=== PATIENT | male | born 1950 | race Caucasian/White ===

== ENCOUNTER 2021-01-20 13:39 | Inpatient (IN) | payer OTHER, MEDICARE ==
[2021-01-20] MEDS ORDERED: HEPARIN SODIUM 1,000 UN/ML (10ML VL) IV ONE (13:47)
[2021-01-20] MEDS ORDERED: NITROGLYCERIN OINT 1 INCH/GM PACKET TOPICAL STA (13:47)
[2021-01-20] MEDS ORDERED: HEPARIN SODIUM 1,000 UN/ML (10ML VL) IVP STA (13:49)
[2021-01-20] MEDS ORDERED: ATORVASTATIN 80 MG TAB PO STA (13:50)
[2021-01-20] MEDS ORDERED: IV FLUID CONTINUATION 1,000 ML IV ONE (14:00)
[2021-01-20] MEDS ORDERED: NITROGLYCERIN OINT 1 INCH/GM PACKET TOPICAL ONE ×2 (14:00→14:08)
--- NOTE | 2021-01-20 14:02 | ED ---
General Adult HPI - General Chief complaint: Chest Pain Stated complaint: STEMI Time Seen by Provider: 01/20/21 13:40 Source: patient, RN notes reviewed, old records reviewed Mode of arrival: ambulatory Limitations: no limitations - History of Present Illness Initial comments: This is a 70-year-old male who presents emergency Department complaining of c hest pain. Patient stated he started his prior to arrival. Patient called the ambulance and they gave the patient nitroglycerin and aspirin it seemed to relieve some of his pain. Patient denies any neurologic deficit. Patient states he was short of breath diaphoretic and had some nausea with it. Patient states currently he still having a little chest discomfort but is feeling considerably better. Patient states his patient to figure. - Related Data Home Medications Medication Instructions Recorded Confirmed glipiZIDE [Glucotrol] 5 mg PO AC-BID 01/29/20 01/29/20 metFORMIN HCL 1,000 mg PO BID 01/29/20 01/29/20 Allergies Allergy/AdvReac Type Severity Reaction Status Date / Time No Known Allergies Allergy Verified 01/20/21 13:48 Review of Systems ROS Statement: Those systems with pertinent positive or pertinent negative responses have been documented in the HPI. ROS Other: All systems not noted in ROS Statement are negative. Past Medical History Past Medical History: Coronary Artery Disease (CAD), Diabetes Mellitus, GERD/Reflux, Hyperlipidemia, Renal Disease, Sleep Apnea/CPAP/BIPAP, Thyroid Disorder Additional Past Medical History / Comment(s): Liver CA History of Any Multi-Drug Resistant Organisms: None Reported Past Surgical History: Heart Catheterization With Stent Past Anesthesia/Blood Transfusion Reactions: No Reported Reaction Date of Last Stent Placement:: Past Psychological History: No Psychological Hx Reported Past Alcohol Use History: None Reported Past Drug Use History: None Reported General Exam - General Exam Comments Initial Comments: GENERAL: Patient is well-developed and well-nourished. Patient is nontoxic and well- hydrated and is in mild distress. ENT: Neck is soft and supple. No significant lymphadenopathy is noted. Oropharynx is clear. Moist mucous membranes. Neck has full range of motion without eliciting any pain. EYES: The sclera were anicteric and conjunctiva were pink and moist. Extraocular movements were intact and pupils were equal round and reactive to light. Eyelids were unremarkable. PULMONARY: Unlabored respirations. Good breath sounds bilaterally. No audible rales rhonchi or wheezing was noted. CARDIOVASCULAR: There is a regular rate and rhythm without any murmurs gallops or rubs. ABDOMEN: Soft and nontender with normal bowel sounds. No palpable organomegaly was noted. There is no palpable pulsatile mass. SKIN: Skin is clear with no lesions or rashes and otherwise unremarkable. NEUROLOGIC: Patient is alert and oriented x3. Cranial nerves II through XII are grossly intact. Motor and sensory are also intact. Normal speech, volume and content. Symmetrical smile. MUSCULOSKELETAL: Normal extremities with adequate strength and full range of motion. LYMPHATICS: No significant lymphadenopathy is noted PSYCHIATRIC: Normal psychiatric evaluation. Limitations: no limitations Course Vital Signs 01/20/21 13:40 Temperature 97.8 F Pulse Rate 94 Respiratory 18 Rate Blood Pressure 170/97 O2 Sat by Pulse 97 Oximetry Medical Decision Making - Medical Decision Making Patient's EKG shows normal sinus rhythm at 81 bpm GA interval 166 QRS is 116 QT interval 412 QTC is 478. Patient's EKG shows significant ST segment elevation in inferior leads II, III, and F aVF as well as ST segment depression in precordial leads V1 through V4. Patient also has depression in 1 and aVL. I called a STEMI overhead immediately and patient will be taken to the Organisation And Methods Analyst after they received heparin they also had aspirin and ampicillin way in. Patient also got Lipitor 80. I spoke with because he agreed to admit the patient admitted the patient I wrote admitting orders and consult cardiology. Critical Care Time Critical Care Time: Yes Total Critical Care Time: 35 Disposition Clinical Impression: ST elevation myocardial infarction (STEMI) Disposition: ADMITTED IP TO THIS HOSP Referrals: [facility],Clinic [Primary Care Provider] - 1-2 days Time of Disposition: 14:06
[2021-01-20] MEDS ORDERED: VERAPAMIL 2.5 MG/ML 2 ML AMP ONE (14:08)
[2021-01-20 14:10] LABS: Basophils # (A) 0.1 k/uL (0-0.2); Basophils % (A) 1 %; Eosinophils # (A) 0.1 k/uL (0-0.7); Eosinophils % (A) 1 %; HCT 45.9 % (39.0-53.0); HGB 15.1 gm/dL (13.0-17.5); Lymphocytes # (A) 0.9 k/uL (1.0-4.8); Lymphocytes % (A) 9 %; MCH 30.9 pg (25.0-35.0); MCV 93.9 fL (80.0-100.0); Mean Platelet Volume 7.8; Monocytes # (A) 0.4 k/uL (0-1.0); Monocytes % (A) 4 %; Neutrophils # (A) 7.8 k/uL (1.3-7.7); Neutrophils % (A) 83 %; Platelet Count 244 k/uL (150-450); Prothrombin Time 10.5 sec (9.0-12.0); RBC 4.89 m/uL (4.30-5.90); RDW 13.7 % (11.5-15.5); WBC 9.4 k/uL (3.8-10.6)
[2021-01-20] MEDS ORDERED: fentaNYL (PF) 50 MCG/ML 2 ML AMP ONE (14:10)
[2021-01-20] MEDS ORDERED: fentaNYL (PF) 50 MCG/ML 2 ML AMP IV ONE (14:12)
[2021-01-20 14:13] LABS: Albumin 4.6 g/dL (3.5-5.0); Calcium 10.5 mg/dL (8.4-10.2); Magnesium 1.3 mg/dL (1.6-2.3); Potassium 4.1 mmol/L (3.5-5.1); Total Bilirubin 0.5 mg/dL (0.2-1.3); Total Protein 7.6 g/dL (6.3-8.2)
[2021-01-20] MEDS ORDERED: LIDOCAINE 1% INJ 10MG/ML (20 ML MDV) SQ ONE (14:13)
[2021-01-20] MEDS ORDERED: NITROGLYCERIN SL TABS 0.4 MG TAB SUBLINGUAL PRN ×2 (14:13→14:59)
[2021-01-20] MEDS ORDERED: VERAPAMIL SYRINGE (5 MG/10 ML) INTRAARTER ONE (14:15)
--- NOTE | 2021-01-20 14:18 | XR ---
EXAMINATION TYPE: XR chest 1V DATE OF EXAM: 01/20/2021 COMPARISON: NONE HISTORY: 70-year-old male with chest pain TECHNIQUE: Single frontal view of the chest is obtained. FINDINGS: Left lateral lower chest AICD generator with single lead extending along the midline. Heart mildly en larged. Mild interstitial prominence is a chronic appearance. No minnie consolidation or pleural effus ion. IMPRESSION: Mild cardiomegaly. Chronic appearing changes. No definite acute process.
[2021-01-20] MEDS: HEPARIN SODIUM 1,000 UN/ML (10ML VL) IV ONE ×2 (14:20→14:34)
[2021-01-20] MEDS ORDERED: TICAGRELOR 90 MG TAB ONE (14:21)
[2021-01-20] MEDS ORDERED: TICAGRELOR 90 MG TAB PO ONE (14:24)
[2021-01-20] MEDS ORDERED: NITROGLYCERIN 1000MCG/10ML SYRINGE INTRACORON ONE (14:27)
[2021-01-20 14:33] LABS: Partial Thromboplastin Time 20.4 sec (22.0-30.0)
[2021-01-20] MEDS ORDERED: IOPAMIDOL-370 125ML BTL INJ ONE (14:34)
--- NOTE | 2021-01-20 14:43 | P.CRDCN ---
History of Present Illness Consult date: 01/20/21 History of present illness: HISTORY OF PRESENT ILLNESS: This is a 70-year-old male with a past medical history significant for diabetes mellitus, hypertension, hyperlipidemia, coronary artery disease with previous stenting 3, ablation (patient believes secondary to atrial fibrillation but is not sure) and AICD implantation. Patient follows with a construction plumber out of [facility] but he is unsure of the construction plumber name. We have been asked to see the patient in consultation for STEMI. Patient presented to the hospital secondary to chest pain. Patient was found to have ST elevation on EKG and a STEMI was called. Patient was examined at the bedside in the emergency room. Patient states he was working on his [email or web address] car around 1pm and was bent over fixing something on the car. He states when he stood up he began having chest pain. He reports shortness of breath and associated diaphoresis. He denied any radiation of the pain. He states he sat down and tried to rest and drink some water but the pain did not go away. Patient denies taking any aspirin or nitro at home. At the time of examination, the patient states his pain has significant improved and reports it only as a dull ache at this time. EKG reveals ST elevation in inferior leads. ST depression in V2. Patient also has ST depression in anterolateral leads. Chest xray mild cardiomegaly. Chronic appearing changes. No definite acute process. Laboratory data: WBC 9.4. Hemoglobin 15.1. Platelet count 244. Sodium 142. Potassium 4.1. BUN 17. Creatinine 1.50. Magnesium 1.3. Current home cardiac medications include list is not updated at the time of this dictation REVIEW OF SYSTEMS: At the time of my exam: CONSTITUTIONAL: Denies fever or chills. HEENT: Denies blurred vision, vision changes, or eye pain. Denies hemoptysis CARDIOVASCULAR: Reports mild chest pain. Denies orthopnea. Denies PND. Denies palpitations RESPIRATORY: Denies shortness of breath. GASTROINTESTINAL: Denies abdominal pain. Denies nausea or vomiting. HEMATOLOGIC: Denies bleeding disorders. GENITOURINARY: Denies any blood in urine. SKIN: Denies pruitis. Denies rash. PHYSICAL EXAM: VITAL SIGNS: Reviewed. GENERAL: Well-developed in no acute distress. HEENT: Head is normocephalic. Pupils are equal, round. Sclerae anicteric. Mucous membranes of the mouth are moist. Neck supple. No JVD or thyromegaly LUNGS: Respirations even and unlabored. Lungs essentially clear to auscultation bilaterally. HEART: Regular rate and rhythm. S1 and S2 heard. ABDOMEN: Soft. Nondistended. Nontender. EXTREMITIES: Normal range of motion. No clubbing or cyanosis. Peripheral pulses intact. No lower extremity edema NEUROLOGIC: Awake and alert. Oriented x 3. ASSESSMENT: STEMI Coronary artery disease with previous stenting x 3 History of ablation (patient believes secondary to afib?) History of AICD implantation Hypertension Hyperlipidemia Diabetes mellitus PLAN: Patient received aspirin and heparin bolus in the ER Patient advised to undergo emergent cardiac catheterization Patient transported to the quality assurance/r&d lab technician in stable condition Nurse practitioner note has been reviewed by physician. Signing provider agrees with the documented findings, assessment, and plan of care. Past Medical History Past Medical History: Coronary Artery Disease (CAD), Diabetes Mellitus, GERD/Reflux, Hyperlipidemia, Renal Disease, Sleep Apnea/CPAP/BIPAP, Thyroid Disorder Additional Past Medical History / Comment(s): Liver CA History of Any Multi-Drug Resistant Organisms: None Reported Past Surgical History: Heart Catheterization With Stent Past Anesthesia/Blood Transfusion Reactions: No Reported Reaction Date of Last Stent Placement:: Past Psychological History: No Psychological Hx Reported Past Alcohol Use History: None Reported Past Drug Use History: None Reported Medications and Allergies Home Medications Medication Instructions Recorded Confirmed Type glipiZIDE [Glucotrol] 5 mg PO AC-BID 01/29/20 01/29/20 History metFORMIN HCL 1,000 mg PO BID 01/29/20 01/29/20 History Allergies Allergy/AdvReac Type Severity Reaction Status Date / Time No Known Allergies Allergy Verified 01/20/21 13:48 Physical Exam Vitals: Vital Signs Temp Pulse Resp BP Pulse Ox 01/20/21 13:55 100 18 167/106 98 01/20/21 13:40 97.8 F 94 18 170/97 97 Intake and Output 01/19/21 01/20/21 01/20/21 22:59 06:59 14:59 Other: Weight 102.058 kg Results 01/20/21 13:54 01/20/21 13:54 Cardiac Enzymes 01/20/21 Range/Units 13:54 AST 43 (17-59) U/L CBC 01/20/21 Range/Units 13:54 WBC 9.4 (3.8-10.6) k/uL RBC 4.89 (4.30-5.90) m/uL Hgb 15.1 (13.0-17.5) gm/dL Hct 45.9 (39.0-53.0) % Plt Count 244 (150-450) k/uL Comprehensive Metabolic Panel 01/20/21 Range/Units 13:54 Sodium 142 (137-145) mmol/L Potassium 4.1 (3.5-5.1) mmol/L Chloride 109 H (98-107) mmol/L Carbon Dioxide 17 L (22-30) mmol/L BUN 17 (9-20) mg/dL Creatinine 1.50 H (0.66-1.25) mg/dL Glucose 238 H (74-99) mg/dL Calcium 10.5 H (8.4-10.2) mg/dL AST 43 (17-59) U/L ALT 32 (4-49) U/L Alkaline Phosphatase 65 (38-126) U/L Total Protein 7.6 (6.3-8.2) g/dL Albumin 4.6 (3.5-5.0) g/dL Current Medications Generic Name Dose Route Start Last Admin Trade Name Freq PRN Reason Stop Dose Admin Aspirin 325 mg 01/21/21 09:00 Aspirin 325 Mg Tab PO DAILY AIDEN Nitroglycerin 0.4 mg 01/20/21 14:13 Nitroglycerin Sl Tabs 0.4 Mg Tab SUBLINGUAL Q5M PRN Chest Pain Nitroglycerin 1 inch 01/20/21 18:00 Nitroglycerin Oint 1 Inch/Gm Packet TOPICAL Q6HR AIDEN Intake and Output 01/19/21 01/20/21 01/20/21 22:59 06:59 14:59 Other: Weight 102.058 kg Patient Weight 01/21/21 06:59 Weight 102.058 kg 01/20/21 13:54 01/20/21 13:54
[2021-01-20] MEDS ORDERED: IOPAMIDOL-370 100ML BTL INJ ONE (14:50)
[2021-01-20] MEDS ORDERED: MAG HYDROX/AL HYDROX/SIMETH 30 ML CUP PO PRN (14:59)
[2021-01-20] MEDS ORDERED: RX INFO: IV CONTRAST WAS GIVEN 1 EACH MISC MISCELLANE PRN (14:59)
[2021-01-20] MEDS ORDERED: ZOLPIDEM 5 MG TAB PO PRN (14:59)
[2021-01-20] MEDS ORDERED: ATROPINE SULFATE 0.1 MG/ML 10ML SYRINGE IV PRN (14:59)
[2021-01-20] MEDS ORDERED: SODIUM CHLORIDE 0.9% 1,000 ML IV SCH (15:00)
[2021-01-20 15:25] LABS: Glucose,Whole Blood 154 mg/dL (75-99)
[2021-01-20] MEDS ORDERED: ALBUTEROL NEBULIZED 2.5 MG/3 ML INHALATION PRN (16:56)
--- NOTE | 2021-01-20 16:56 | P.HPIM ---
History of Present Illness Patient is a 70-year-old male came in with compensative chest pain found to have ST elevations in the EKG. Patient chest pain is in the left side of the chest along with shortness of breath and diaphoresis. Patient is found to have ST elevations in lead V2, AVR in lead 3 with reciprocal changes. Chest x-ray did not show any significant abnormality troponin is not available yet. Patient was subsequently taken to Process Engineer . Patient had history of coronary artery disease with previous stenting and AICD implantation in the past. REVIEW OF SYSTEMS: CONSTITUTIONAL: No fever, no malaise, no fatigue. HEENT: No recent visual problems or hearing problems. Denied any sore throat. CARDIOVASCULAR: No orthopnea, PND, no palpitations, no syncope. PULMONARY: No shortness of breath, no cough, no hemoptysis. GASTROINTESTINAL: No diarrhea, no nausea, no vomiting, no abdominal pain. NEUROLOGICAL: No headaches, no weakness, no numbness. HEMATOLOGICAL: Denies any bleeding or petechiae. GENITOURINARY: Denies any burning micturition, frequency, or urgency. MUSCULOSKELETAL/RHEUMATOLOGICAL: Denies any joint pain, swelling, or any muscle pain. ENDOCRINE: Denies any polyuria or polydipsia. The rest of the 14-point review of systems is negative. PHYSICAL EXAMINATION: GENERAL: The patient is alert and oriented x3, not in any acute distress. Well developed, well nourished. HEENT: Pupils are round and equally reacting to light. EOMI. No scleral icterus. No conjunctival pallor. Normocephalic, atraumatic. No pharyngeal erythema. No thyromegaly. CARDIOVASCULAR: S1 and S2 present. No murmurs, rubs, or gallops. PULMONARY: Chest is clear to auscultation, no wheezing or crackles. ABDOMEN: Soft, nontender, nondistended, normoactive bowel sounds. No palpable organomegaly. MUSCULOSKELETAL: No joint swelling or deformity. EXTREMITIES: No cyanosis, clubbing, or pedal edema. NEUROLOGICAL: Gross neurological examination did not reveal any focal deficits. SKIN: No rashes. Assessment and plan -Acute ST elevation myocardial infarction: Patient received heparin bolus will undergo emergent cardiac catheterization -Coronary artery disease -Hypertension -Hyperlipidemia -Type 2 diabetes mellitus -Sleep apnea -Hypothyroidism -Possible chronic kidney disease: Patient creatinine is 1.5 and do not have his baseline from be an and creatinine ratio it appears this may be his baseline For above-mentioned chronic medical problems patient will be resumed on appropriate medications once his cardiac catheterization is done. - Past Medical History Past Medical History: Coronary Artery Disease (CAD), Diabetes Mellitus, GERD/Reflux, Hyperlipidemia, Renal Disease, Sleep Apnea/CPAP/BIPAP, Thyroid Disorder Additional Past Medical History / Comment(s): Liver CA-2020 History of Any Multi-Drug Resistant Organisms: None Reported Past Surgical History: Heart Catheterization, Heart Catheterization With Stent Additional Past Surgical History / Comment(s): ablation of liver mass Past Anesthesia/Blood Transfusion Reactions: No Reported Reaction Date of Last Stent Placement:: Past Psychological History: No Psychological Hx Reported Smoking Status: Former smoker Past Alcohol Use History: None Reported Past Drug Use History: None Reported Medications and Allergies Home Medications Medication Instructions Recorded Confirmed Type glipiZIDE [Glucotrol] 5 mg PO AC-BID 01/29/20 01/20/21 History metFORMIN HCL 1,000 mg PO BID 01/29/20 01/20/21 History Albuterol Inhaler [Ventolin Hfa 1 puff INHALATION RT-QID PRN 01/20/21 01/20/21 History Inhaler] Aspirin EC [Ecotrin Low Dose] 81 mg PO DAILY 01/20/21 01/20/21 History Chlorthalidone 25 mg PO DAILY 01/20/21 01/20/21 History Cholecalciferol [Vitamin D3 (25 25 mcg PO DAILY 01/20/21 01/20/21 History Mcg = 1000 Iu)] Gemfibrozil [Lopid] 600 mg PO AC-BID 01/20/21 01/20/21 History HYDROcodone/APAP 5-325MG [[place] 1 - 2 tab PO Q6H PRN 01/20/21 01/20/21 History 5-325] Losartan Potassium 100 mg PO DAILY 01/20/21 01/20/21 History Metoprolol Tartrate [Lopressor] 75 mg PO BID 01/20/21 01/20/21 History Montelukast [Singulair] 10 mg PO DAILY 01/20/21 01/20/21 History Multivitamins, Thera [Multivitamin 1 tab PO DAILY 01/20/21 01/20/21 History (formulary)] Omeprazole 20 mg PO DAILY 01/20/21 01/20/21 History Rosuvastatin Calcium [Crestor] 20 mg PO DAILY 01/20/21 01/20/21 History Tiotropium 18 Mcg/Puff [Spiriva] 2 puff INHALATION RT-DAILY 01/20/21 01/20/21 History amLODIPine [Norvasc] 5 mg PO DAILY 01/20/21 01/20/21 History glipiZIDE [Glucotrol] 10 mg PO AC-BID 01/20/21 01/20/21 History metFORMIN HCL 1,000 mg PO BID 01/20/21 01/20/21 History Allergies Allergy/AdvReac Type Severity Reaction Status Date / Time No Known Allergies Allergy Verified 01/20/21 14:54 Physical Exam Vitals: Vital Signs Temp Pulse Resp BP Pulse Ox 01/20/21 15:57 95 01/20/21 13:55 100 18 167/106 98 01/20/21 13:40 97.8 F 94 18 170/97 97 Intake and Output 01/20/21 01/20/21 01/20/21 06:59 14:59 22:59 Intake Total 150 Balance 150 Intake: IV 150 Other: Weight 102.058 kg 102.058 kg Results CBC & Chem 7: 01/20/21 13:54 01/20/21 13:54 Labs: Abnormal Lab Results - Last 24 Hours (Table) 01/20/21 01/20/21 01/20/21 Range/Units 13:54 13:54 13:54 Neutrophils # 7.8 H (1.3-7.7) k/uL Lymphocytes # 0.9 L (1.0-4.8) k/uL APTT 20.4 L (22.0-30.0) sec Chloride 109 H (98-107) mmol/L Carbon Dioxide 17 L (22-30) mmol/L Creatinine 1.50 H (0.66-1.25) mg/dL Glucose 238 H (74-99) mg/dL POC Glucose (mg/dL) (75-99) mg/dL Calcium 10.5 H (8.4-10.2) mg/dL Magnesium 1.3 L (1.6-2.3) mg/dL 01/20/21 Range/Units 15:13 Neutrophils # (1.3-7.7) k/uL Lymphocytes # (1.0-4.8) k/uL APTT (22.0-30.0) sec Chloride (98-107) mmol/L Carbon Dioxide (22-30) mmol/L Creatinine (0.66-1.25) mg/dL Glucose (74-99) mg/dL POC Glucose (mg/dL) 154 H (75-99) mg/dL Calcium (8.4-10.2) mg/dL Magnesium (1.6-2.3) mg/dL Thrombosis Risk Factor Assmnt - Choose All That Apply Any of the Below Risk Factors Present?: Yes Each Factor Represents 1 point: Acute RI Each Risk Factor Represents 2 Points: Age 61-74 years Thrombosis Risk Factor Assessment Total Risk Factor Score: 3 Thrombosis Risk Factor Assessment Level: Moderate Risk
[2021-01-20] MEDS: glipiZIDE 5 MG TAB PO SCH (17:42)
[2021-01-20] MEDS ORDERED: NITROGLYCERIN OINT 1 INCH/GM PACKET TOPICAL SCH (18:00)
[2021-01-20] MEDS: IPRATROPIUM 0.5 MG/2.5 ML NEBU INHALATION SCH ×2 (19:50→20:12)
--- NOTE | 2021-01-20 20:28 | CC ---
CARDIAC CATHETERIZATION REPORT Mr. Nye is a 70-year-old male who is followed at the [facility] and has underwent multivessel stenting at the [facility] in [place] about 3-4 years ago, history of hypertension, hyperlipidemia, diabetes mellitus, who presented with acute episode of chest discomfort and ST-segment elevation involving the inferior wall with ST-segment depression in the anterior precordial leads. He was evaluated by Dr. Ybarra and recommendation made regarding cardiac catheterization. The procedure as well as the risks and the complications were discussed with the patient who is in full understanding and agreement. PROCEDURE: Patient was brought to the labor training manager in the semi-sedated state after receiving fentanyl and Benadryl and achieving moderate conscious sedated state. Using Xylocaine anesthesia and Seldinger technique a 6-Lithuanian sheath was introduced in the right radial artery. Right coronary angiography performed a 6-Lithuanian FR4 guiding catheter. After obtaining images of the right coronary artery the guiding catheter was removed and a 6- Lithuanian EBU 3.75 guiding catheter introduced in the system and images of the left coronary system were performed. After that, angioplasty and stenting of the left circumflex was performed. Following that, a 5-Lithuanian tight pigtail catheter was introduced into the left ventricle and pressures were calculated. Following that catheter and sheath were removed. Hemostasis was obtained with deployment of a TR band. There was no immediate complication. Patient was returned to his room in stable condition. FINDINGS: LEFT MAIN: This is a short size vessel bifurcating into left circumflex and left anterior descending artery. Left main coronary artery has no evidence of high-grade stenosis. LEFT ANTERIOR DESCENDING ARTERY: This is a large-sized vessel reaching to the apex. The left anterior descending artery has a stent in the mid segment that is patent. The mid segment has a 10% to 20% plaque. The rest of the vessel has no high-grade stenosis. LEFT CIRCUMFLEX ARTERY: This vessel is totally occluded in the proximal segment at the proximal edge of a prior stent. No antegrade flow was noted. RIGHT CORONARY ARTERY: This is a large dominant vessel bifurcating distally into PDA and posterolateral segment branches. The mid segment is stented. The right coronary artery has mild intimal disease without any evidence of high-grade stenosis. LEFT VENTRICULOGRAM: Left ventriculogram was not performed. HEMODYNAMICS: There was no gradient across the aortic valve. The left ventricle end-diastolic pressure farooq 20-24 mmHg. CONCLUSION: 1. Acutely occluded proximal left circumflex. 2. Mild disease in the LAD and the right coronary artery with patent stents. RECOMMENDATION: In view of finding anatomy, I recommend proceeding with angioplasty and stenting of the left circumflex. The procedure, its risks and the complications were discussed with the patient who is in full understanding and agreement. MMKVNGL / JOSUEN: [id number] /
[2021-01-20] MEDS: METOPROLOL TARTRATE 50 MG TAB PO SCH (20:30)
[2021-01-20] MEDS: LOSARTAN 50 MG TAB PO SCH (20:30)
[2021-01-20] MEDS: TICAGRELOR 90 MG TAB PO SCH (20:30)
--- NOTE | 2021-01-20 20:40 | PTCA ---
PERCUTANEOUSTRANS CORORONARY ANGIOGRAPHY Mr. Nye is a 70-year-old male who is followed at the [facility] and at the [facility] in [place], status post multivessel stenting an ICD implantation who presented with an acute myocardial infarction. He underwent cardiac catheterization and was found to have a totally occluded proximal left circumflex. In view of that, recommendation was made regarding angioplasty and stenting. The procedure as well as the risks and the complications were discussed with the patient who is in full understanding and agreement. PROCEDURE DESCRIPTION: Using the 6-[place] EBU 3.75 guiding catheter a 0.014 balanced medium weight J-wire with the help of a SuperCross straight catheter across the total occlusion and positioned distally subsequently 2.5 x 15 mm Trek balloon was advanced and multiple inflation mid segment, a maximum of 8 atmospheres were done. Following that the balloon was removed and a 3.0 x 38 mm Xience Natalya stent was deployed, post dilated at 16 atmospheres. Following that the balloon was removed and a 0.014 Whisper J-wire was advanced into the distal left circumflex and positioned distally. Subsequently, a 1.5 x 12 mm Trek balloon was advanced and one inflation at the bifurcation was done at 10 atmospheres. After removing the balloon, a 2.0 x 12 mm Trek balloon was advanced and two inflations in the same segment were done at maximum of 8 atmospheres. After the last inflation, after appropriate wait, the balloon and the guidewire were withdrawn back in the guiding catheter. Images were obtained and repeated. Those images reveal stable successful stenting. Subsequently, left ventricular end-diastolic pressure was calculated. Subsequently, catheter and sheath were removed. Hemostasis was obtained with deployment of TR band. There was no immediate complication. The patient was returned to his room in stable condition. Of note, the patient received a total of 6000 units of intravenous heparin as well as oral loading dose of Brilinta. He was pain-free at the end procedure and with improvement in his EKG changes. RESULTS: Successful stenting of the proximal left circumflex with reduction of stenosis from 100% to 0% with recanalization of the distal left circumflex with a DUSTY-3 flow and evidence of intraluminal haziness. RECOMMENDATION: Patient will be continued on aspirin, Brilinta, beta jose david, angiotensin receptor jose david and statin. The importance of dual antiplatelet treatment were discussed with the patient and his family and they are in full understanding and agreement. Duration of sedation is 41 minutes. MMODL / IJN: [id number] /
[2021-01-21 05:11] LABS: Calcium 9.7 mg/dL (8.4-10.2); Potassium 3.8 mmol/L (3.5-5.1)
[2021-01-21] MEDS: glipiZIDE 5 MG TAB PO SCH ×2 (06:41→18:03)
[2021-01-21] MEDS ORDERED: ASPIRIN 325 MG TAB PO SCH (09:00)
[2021-01-21] MEDS: IPRATROPIUM 0.5 MG/2.5 ML NEBU INHALATION SCH ×4 (09:03→21:18)
[2021-01-21] MEDS: ASPIRIN 81 MG PO SCH (09:15)
[2021-01-21] MEDS: MULTIVITAMINS, THERA 1 EACH TAB PO SCH (09:16)
[2021-01-21] MEDS: TICAGRELOR 90 MG TAB PO SCH ×2 (09:16→21:30)
[2021-01-21] MEDS: METOPROLOL TARTRATE 50 MG TAB PO SCH ×2 (09:16→21:29)
[2021-01-21] MEDS: CHOLECALCIFEROL 25 MCG (1000 IU) TABLET PO SCH (09:16)
[2021-01-21] MEDS: MONTELUKAST 10 MG TAB PO SCH (09:16)
[2021-01-21] MEDS: LOSARTAN 50 MG TAB PO SCH ×2 (09:16→21:29)
--- NOTE | 2021-01-21 10:20 | P.PN ---
Subjective Progress Note Date: 01/21/21 HISTORY OF PRESENT ILLNESS: This is a 70-year-old male with a past medical history significant for diabetes mellitus, hypertension, hyperlipidemia, coronary artery disease with previous stenting 3, ablation (patient believes secondary to atrial fibrillation but is not sure) and AICD implantation. Patient follows with a home health manager out of [facility] but he is unsure of the home health manager name. We have been asked to see the patient in consultation for STEMI. Patient presented to the hospital secondary to chest pain. Patient was found to have ST elevation on EKG and a STEMI was called. Patient was examined at the bedside in the emergency room. Patient states he was working on his [employer] car around 1pm and was bent over fixing something on the car. He states when he stood up he began having chest pain. He reports shortness of breath and associated diaphoresis. He denied any radiation of the pain. He states he sat down and tried to rest and drink some water but the pain did not go away. Patient denies taking any aspirin or nitro at home. At the time of examination, the patient states his pain has significant improved and reports it only as a dull ache at this time. EKG reveals ST elevation in inferior leads. ST depression in V2. Patient also has ST depression in anterolateral leads. Chest xray mild cardiomegaly. Chronic appearing changes. No definite acute process. Laboratory data: WBC 9.4. Hemoglobin 15.1. Platelet count 244. Sodium 142. Potassium 4.1. BUN 17. Creatinine 1.50. Magnesium 1.3. Current home cardiac medications include list is not updated at the time of this dictation 01/21/2021 Patient is status post cardiac catheterization with PCI to the circumflex. Patient was also found to have patent stents in the LAD and RCA. Patient examined this morning at the bedside. Patient denies chest pain or pressure. He denies shortness of breath. He reports mild heartburn this morning. Vital signs are stable. PHYSICAL EXAM: VITAL SIGNS: Reviewed. GENERAL: Well-developed in no acute distress. HEENT: Head is normocephalic. Pupils are equal, round. Sclerae anicteric. Mucous membranes of the mouth are moist. Neck supple. No JVD or thyromegaly LUNGS: Respirations even and unlabored. Lungs essentially clear to auscultation bilaterally. HEART: Regular rate and rhythm. S1 and S2 heard. ABDOMEN: Soft. Nondistended. Nontender. EXTREMITIES: Normal range of motion. No clubbing or cyanosis. Peripheral pulses intact. No lower extremity edema. Right radial cath site with pulse present. NEUROLOGIC: Awake and alert. Oriented x 3. ASSESSMENT: STEMI, status post cardiac catheterization with PCI to circumflex and revealing patent stents to LAD and RCA Coronary artery disease with previous stenting to LAD and RCA History of ablation (patient believes secondary to afib?) History of AICD implantation Hypertension Hyperlipidemia Diabetes mellitus PLAN: Continue current cardiac medications 2D echo ordered. Await results Per case management, Brilinta not [facility] by [facility]. Patient can get a free month of Brilinta at discharge and then can be switched to plavix on an outpatient basis Further recommendations pending patient's course Nurse practitioner note has been reviewed by physician. Signing provider agrees with the documented findings, assessment, and plan of care. Objective - Vital Signs Vital signs: Vital Signs Temp 98.2 F 01/21/21 08:00 Pulse 80 01/21/21 09:24 Resp 22 01/21/21 09:00 BP 152/79 01/21/21 09:00 Pulse Ox 93 L 01/21/21 09:00 Intake & Output 01/20/21 01/21/21 01/21/21 18:59 06:59 18:59 Intake Total 775 1150 235 Output Total 600 1550 400 Balance 175 -400 -165 Weight 102.058 kg 109.5 kg Intake: IV 525 150 Sodium Chloride 0.9% 1, 375 150 000 ml @ 75 mls/hr IV . [id number] [facility] Rx#:[id number] Oral 250 1000 235 Output: Urine 600 1550 400 Other: Voiding Method Urinal Urinal Toilet Urinal # Voids 1 0 - Labs CBC & Chem 7: 01/20/21 13:54 01/21/21 04:43 Labs: Abnormal Lab Results - Last 24 Hours (Table) 01/20/21 01/20/21 01/20/21 Range/Units 13:54 13:54 13:54 Neutrophils # 7.8 H (1.3-7.7) k/uL Lymphocytes # 0.9 L (1.0-4.8) k/uL APTT 20.4 L (22.0-30.0) sec Chloride 109 H (98-107) mmol/L Carbon Dioxide 17 L (22-30) mmol/L Creatinine 1.50 H (0.66-1.25) mg/dL Glucose 238 H (74-99) mg/dL POC Glucose (mg/dL) (75-99) mg/dL Calcium 10.5 H (8.4-10.2) mg/dL Magnesium 1.3 L (1.6-2.3) mg/dL Troponin I (0.000-0.034) ng/mL 01/20/21 01/20/21 01/20/21 Range/Units 15:13 17:00 20:07 Neutrophils # (1.3-7.7) k/uL Lymphocytes # (1.0-4.8) k/uL APTT (22.0-30.0) sec Chloride (98-107) mmol/L Carbon Dioxide (22-30) mmol/L Creatinine (0.66-1.25) mg/dL Glucose (74-99) mg/dL POC Glucose (mg/dL) 154 H (75-99) mg/dL Calcium (8.4-10.2) mg/dL Magnesium (1.6-2.3) mg/dL Troponin I 79.400 H* 138.000 H* (0.000-0.034) ng/mL 01/21/21 Range/Units 04:43 Neutrophils # (1.3-7.7) k/uL Lymphocytes # (1.0-4.8) k/uL APTT (22.0-30.0) sec Chloride (98-107) mmol/L Carbon Dioxide (22-30) mmol/L Creatinine (0.66-1.25) mg/dL Glucose 193 H (74-99) mg/dL POC Glucose (mg/dL) (75-99) mg/dL Calcium (8.4-10.2) mg/dL Magnesium (1.6-2.3) mg/dL Troponin I (0.000-0.034) ng/mL
--- NOTE | 2021-01-21 10:27 | ECHOF ---
Referral Reason:nj MEASUREMENTS -------- HEIGHT: 175.3 cm WEIGHT: 102.1 kg BP: 141/85 RVIDd: 3.1 cm (< 3.3) IVSd: 1.2 cm (0.6 - 1.1) LVIDd: 5.4 cm (3.9 - 5.3) LVPWd: 1.0 cm (0.6 - 1.1) IVSs: 1.9 cm LVIDs: 3.4 cm LVPWs: 1.7 cm LA Diam: 3.4 cm (2.7 - 3.8) LAESV Index (A-L): 22.10 ml/m Ao Diam: 3.3 cm (2.0 - 3.7) AV Cusp: 2.2 cm (1.5 - 2.6) MV EXCURSION: 14.924 mm (> 18.000) MV EF SLOPE: 37 mm/s (70 - 150) EPSS: 0.4 cm MV E David: 0.69 m/s MV DecT: 259 ms MV A David: 0.92 m/s MV E/A Ratio: 0.76 AV maxP.26 mmHg AV meanP.88 mmHg FINDINGS -------- Sinus rhythm. This was a technically adequate study. The left ventricular size is normal. There is borderline concentric left ventricular hypertrophy. Overall left ventricular systolic function is normal with, an EF between 60 - 65 %. The right ventricle is normal in size. Normal LA size by volume 22+/-6 ml/m2. The right atrium is normal in size. Interatrial and interventricular septum intact. There is mild aortic valve sclerosis. Peak/mean gradient across the Aortic Valve is 13.26mmHg / 6.8 8mmHg. The mitral valve is normal. The tricuspid valve appears structurally normal. Trace/mild (physiologic) pulmonic regurgitation. The aortic root size is normal. Normal inferior vena cava with normal inspiratory collapse consistent with estimated right atrial pre ssure of 5 mmHg. There is no pericardial effusion. CONCLUSIONS -------- 1. The left ventricular size is normal. 2. There is borderline concentric left ventricular hypertrophy. 3. Overall left ventricular systolic function is normal with, an EF between 60 - 65 %. 4. There is mild aortic valve sclerosis. 5. Peak/mean gradient across the Aortic Valve is 13.26mmHg / 6.88mmHg. 6. Trace/mild (physiologic) pulmonic regurgitation. 7. There is no pericardial effusion. SILO OPERATOR: Terra Lewis RDCS
[2021-01-21 11:22] VITALS: BMI 35.6
[2021-01-21 11:32] LABS: Chol/HDL Ratio 7.88
[2021-01-21 11:47] LABS: Glucose,Whole Blood 215 mg/dL (75-99)
--- NOTE | 2021-01-21 11:47 | CDI ---
Documentation Clarification Form Date: 01/21/2021 11:34:31 AM From: Daphne WayMICHELLE velez, CCDS Admit Date: 01/20/2021 02:13:00 PM Patient Name: Kd Nye Visit Number: [id number] Discharge Date: ATTENTION: The Clinical Documentation Specialists (CDI) and [facility] Coding Staff appreciate your assistance in clarifying documentation. Please respond to the clarification below the line at the bottom and electronically sign. The CDI & [facility] Coding staff will review the response and follow-up if needed. Please note: Queries are made part of the Legal Health Record. If you have any questions, please contact the author of this message via ITS. Dr. Mirna Gallardo: Atrial Fibrillation is documented is documented in the 01/20 Cardiology Consult and the 01/21 Cardiology Progress Note without further specificity. Additional clarification regarding the type of atrial fibrillation is requested. History/Risk Factors per the 01/21 ED Note Past Medical History: CAD status post previous Heart Catheterization and Stent. DM II, GERD, Hyperlipidemia, Sleep Apnea, Liver Cancer. Per the 01/20 H/P: History of CAD with previous stenting and AICD implantation. Clinical Indicators: Presented to the ED on 01/20 via EMS with Chest Pain, given Nitro & Aspirin with some relief of pain. Was SOB, Diaphoretic & had some nausea. ED Clinical Impression: STEMI 01/20 VS: T 97.8, P 94, R 18 (SOB), BP 170/97, PO 97 RA - 2Lnc, BMI: 35.6 01/20 LAB: Glucose 238, Calcium 10.5, Magnesium 1.3, Troponin <0.012, 29.400, 138.000. 01/20 CXR: Left lateral lower chest AICD generator with single leading extending along the midline. Mild cardiomegaly. No acute. 01/20 EKG: Normal sinus rhythm at 81 bpm CO interval 166 QRS is 116 QT interval 412 QTC is 478, significant ST segment elevation in inferior leads II, III, and F aVF as well as ST segment depression in precordial leads V1 through V4, also has depression in 1 and aVL. Treatment: Nitro paste x2, IV Heparin x1, po Lipitor, 01/20 Heart Cath: Acutely occluded proximal left circumflex. Mild disease in the LAD & RCA with patent grafts. 01/20 PTCA w/Stent to Left Circumflex Please clarify the type of atrial fibrillation, if known: [ ] Chronic [ ] Permanent [ ] Paroxysmal [ ] Persistent [ ] Atrial Fibrillation ruled out [ ] Other, please specify [ XXXX] Unable to determine Refer the question to Dr. Ybarra. (Template Last Revised: November 2020) MTDD
--- NOTE | 2021-01-21 15:47 | P.PN ---
Subjective Patient is a 70-year-old male came in with compensative chest pain found to have ST elevations in the EKG. Patient chest pain is in the left side of the chest along with shortness of breath and diaphoresis. Patient is found to have ST elevations in lead V2, AVR in lead 3 with reciprocal changes. Chest x-ray did not show any significant abnormality troponin is not available yet. Patient was subsequently taken to Sk[facility] Nursing Case [facility] . Patient had history of coronary artery disease with previous stenting and AICD implantation in the past. 01/21/2021 Patient underwent a cardiac catheterization and stenting to circumflex. Patient had EF of around 60-65% PHYSICAL EXAMINATION: GENERAL: The patient is alert and oriented x3, not in any acute distress. Well developed, well nourished. HEENT: Pupils are round and equally reacting to light. EOMI. No scleral icterus. No conjunctival pallor. Normocephalic, atraumatic. No pharyngeal erythema. No thyromegaly. CARDIOVASCULAR: S1 and S2 present. No murmurs, rubs, or gallops. PULMONARY: Chest is clear to auscultation, no wheezing or crackles. ABDOMEN: Soft, nontender, nondistended, normoactive bowel sounds. No palpable organomegaly. MUSCULOSKELETAL: No joint swelling or deformity. EXTREMITIES: No cyanosis, clubbing, or pedal edema. NEUROLOGICAL: Gross neurological examination did not reveal any focal deficits. SKIN: No rashes. Assessment and plan -Acute ST elevation myocardial infarction: Patient has highly elevated troponins and patient is presently under antiplatelet therapy, statin. No evidence of bacterial injury -Coronary artery disease -Hypertension -Hyperlipidemia -Type 2 diabetes mellitus -Sleep apnea -Hypothyroidism -Acute renal failure: Renal azotemia secondary to decreased organ perfusion from myocardial infarction which improved at this time. Patient wasn't creatinine is 1.07 For above-mentioned chronic medical problems patient will be resumed on appropriate medications once his cardiac catheterization is done. Objective - Vital Signs Vital signs: Vital Signs Temp 98.2 F 01/21/21 12:00 Pulse 80 01/21/21 15:16 Resp 20 01/21/21 13:00 BP 146/88 01/21/21 12:00 Pulse Ox 90 L 01/21/21 13:00 Intake & Output 01/20/21 01/21/21 01/21/21 18:59 06:59 18:59 Intake Total 775 1150 235 Output Total 600 1550 400 Balance 175 -400 -165 Weight 102.058 kg 109.5 kg 109.5 kg Intake: IV 525 150 Sodium Chloride 0.9% 1, 375 150 000 ml @ 75 mls/hr IV . [id number] [facility] Rx#:[id number] Oral 250 1000 235 Output: Urine 600 1550 400 Other: Voiding Method Urinal Urinal Toilet Urinal # Voids 1 0 - Labs CBC & Chem 7: 01/20/21 13:54 01/21/21 04:43 Labs: Abnormal Lab Results - Last 24 Hours (Table) 01/20/21 01/20/21 01/21/21 Range/Units 17:00 20:07 04:43 Glucose (74-99) mg/dL POC Glucose (mg/dL) (75-99) mg/dL Troponin I 79.400 H* 138.000 H* (0.000-0.034) ng/mL Triglycerides 628.0 H (0.0-149.0) mg/dL HDL Cholesterol 17.0 L (40.0-60.0) mg/dL 01/21/21 01/21/21 Range/Units 04:43 11:46 Glucose 193 H (74-99) mg/dL POC Glucose (mg/dL) 215 H (75-99) mg/dL Troponin I (0.000-0.034) ng/mL Triglycerides (0.0-149.0) mg/dL HDL Cholesterol (40.0-60.0) mg/dL
[2021-01-21 17:36] LABS: Glucose,Whole Blood 228 mg/dL (75-99)
[2021-01-21 20:37] LABS: Glucose,Whole Blood 205 mg/dL (75-99)
[2021-01-21] MEDS ORDERED: ATORVASTATIN 80 MG TAB PO SCH (21:00)
[2021-01-21] MEDS: INSULIN ASPART (NovoLOG) 100 UNIT/ML VIAL SQ SCH (21:30)
[2021-01-22 06:14] LABS: Glucose,Whole Blood 150 mg/dL (75-99)
[2021-01-22] MEDS: glipiZIDE 5 MG TAB PO SCH (06:57)
[2021-01-22] MEDS: INSULIN ASPART (NovoLOG) 100 UNIT/ML VIAL SQ SCH ×2 (06:59→12:01)
[2021-01-22] MEDS: IPRATROPIUM 0.5 MG/2.5 ML NEBU INHALATION SCH ×2 (07:44→11:27)
[2021-01-22 07:50] VITALS: BP 122/75; TEMP 98.1
[2021-01-22] MEDS: MONTELUKAST 10 MG TAB PO SCH (07:51)
[2021-01-22] MEDS: CHOLECALCIFEROL 25 MCG (1000 IU) TABLET PO SCH (07:51)
[2021-01-22] MEDS: ASPIRIN 81 MG PO SCH ×2 (07:51→07:56)
[2021-01-22] MEDS: MULTIVITAMINS, THERA 1 EACH TAB PO SCH (07:51)
[2021-01-22] MEDS: LOSARTAN 50 MG TAB PO SCH (07:51)
[2021-01-22] MEDS: METOPROLOL TARTRATE 50 MG TAB PO SCH (07:51)
[2021-01-22] MEDS: TICAGRELOR 90 MG TAB PO SCH (07:52)
--- NOTE | 2021-01-22 08:30 | P.DS ---
Providers Date of admission: 01/20/21 14:13 Attending physician: Vinny Beck Consults: 01/20/21 14:13 Consult Physician Urgent Consulting Provider: Cardiology Krysten Consult Reason/Comments: Chest pain Do you want consulting provider notified?: Yes 01/20/21 14:59 Consult Physician Routine Consulting Provider: Augustus Bashir Consult Reason/Comments: Post Interventional patient Do you want consulting provider notified?: Already Contacted Primary care physician: [facility] Course: Patient is a 70-year-old male came in with compensative chest pain found to have ST elevations in the EKG. Patient chest pain is in the left side of the chest along with shortness of breath and diaphoresis. Patient is found to have ST elevations in lead V2, AVR in lead 3 with reciprocal changes. Chest x-ray did not show any significant abnormality troponin is not available yet. Patient was subsequently taken to [facility] . Patient had history of coronary artery disease with previous stenting and AICD implantation in the past. 01/21/2021 Patient underwent a cardiac catheterization and stenting to circumflex. Patient had EF of around 60-65% 01/22/2021 Patient is clinically doing well patient blood sugars are fairly well controlled now patient will be initiated back on metformin after which the blood sugars are expected to be well controlled. Patient will be discharged today if cleared by cardiology. PHYSICAL EXAMINATION: GENERAL: The patient is alert and oriented x3, not in any acute distress. Well developed, well nourished. HEENT: Pupils are round and equally reacting to light. EOMI. No scleral icterus. No conjunctival pallor. Normocephalic, atraumatic. No pharyngeal erythema. No thyromegaly. CARDIOVASCULAR: S1 and S2 present. No murmurs, rubs, or gallops. PULMONARY: Chest is clear to auscultation, no wheezing or crackles. ABDOMEN: Soft, nontender, nondistended, normoactive bowel sounds. No palpable organomegaly. MUSCULOSKELETAL: No joint swelling or deformity. EXTREMITIES: No cyanosis, clubbing, or pedal edema. NEUROLOGICAL: Gross neurological examination did not reveal any focal deficits. SKIN: No rashes. Assessment and plan -Acute ST elevation myocardial infarction: Patient has highly elevated troponins and patient is presently under antiplatelet therapy, statin. Patient has normal ejection fraction -Coronary artery disease -Hypertension -Hyperlipidemia -Type 2 diabetes mellitus -Sleep apnea -Hypothyroidism -Acute renal failure: Renal azotemia secondary to decreased organ perfusion from myocardial infarction which improved at this time. Patient creatinine came down to on 1.07 Plan - Discharge Summary Discharge Rx Participant: Yes New Discharge Prescriptions: New Ticagrelor [Brilinta] 90 mg PO BID #60 tab Metoprolol Tartrate [Lopressor] 50 mg PO BID #60 tab Nitroglycerin Sl Tabs [Nitrostat] 0.4 mg SUBLINGUAL Q5M PRN #30 tab PRN Reason: Chest Pain Famotidine [Pepcid] 20 mg PO DAILY #30 tab Continue glipiZIDE [Glucotrol] 10 mg PO AC-BID HYDROcodone/APAP 5-325MG [Madison 5-325] 1 - 2 tab PO Q6H PRN PRN Reason: Pain Multivitamins, Thera [Multivitamin (formulary)] 1 tab PO DAILY Cholecalciferol [Vitamin D3 (25 Mcg = 1000 Iu)] 25 mcg PO DAILY metFORMIN HCL 1,000 mg PO BID Tiotropium 18 Mcg/Puff [Spiriva] 2 puff INHALATION RT-DAILY Montelukast [Singulair] 10 mg PO DAILY Aspirin EC [Ecotrin Low Dose] 81 mg PO DAILY Albuterol Inhaler [Ventolin Hfa Inhaler] 1 puff INHALATION RT-QID PRN PRN Reason: Shortness Of Breath amLODIPine [Norvasc] 5 mg PO DAILY Losartan Potassium 100 mg PO DAILY Changed Rosuvastatin Calcium [Crestor] 40 mg PO DAILY #30 tab Discontinued Omeprazole 20 mg PO DAILY Chlorthalidone 25 mg PO DAILY Metoprolol Tartrate [Lopressor] 75 mg PO BID Gemfibrozil [Lopid] 600 mg PO AC-BID No Action metFORMIN HCL 1,000 mg PO BID glipiZIDE [Glucotrol] 5 mg PO AC-BID Discharge Medication List glipiZIDE [Glucotrol] 5 mg PO AC-BID 01/29/20 [History] metFORMIN HCL 1,000 mg PO BID 01/29/20 [History] Albuterol Inhaler [Ventolin Hfa Inhaler] 1 puff INHALATION RT-QID PRN 01/20/21 [History] Aspirin EC [Ecotrin Low Dose] 81 mg PO DAILY 01/20/21 [History] Cholecalciferol [Vitamin D3 (25 Mcg = 1000 Iu)] 25 mcg PO DAILY 01/20/21 [History] HYDROcodone/APAP 5-325MG [Madison 5-325] 1 - 2 tab PO Q6H PRN 01/20/21 [History] Losartan Potassium 100 mg PO DAILY 01/20/21 [History] Montelukast [Singulair] 10 mg PO DAILY 01/20/21 [History] Multivitamins, Thera [Multivitamin (formulary)] 1 tab PO DAILY 01/20/21 [Hi story] Tiotropium 18 Mcg/Puff [Spiriva] 2 puff INHALATION RT-DAILY 01/20/21 [History] amLODIPine [Norvasc] 5 mg PO DAILY 01/20/21 [History] glipiZIDE [Glucotrol] 10 mg PO AC-BID 01/20/21 [History] metFORMIN HCL 1,000 mg PO BID 01/20/21 [History] Famotidine [Pepcid] 20 mg PO DAILY #30 tab 01/22/21 [Rx] Metoprolol Tartrate [Lopressor] 50 mg PO BID #60 tab 01/22/21 [Rx] Nitroglycerin Sl Tabs [Nitrostat] 0.4 mg SUBLINGUAL Q5M PRN #30 tab 01/22/21 [Rx] Rosuvastatin Calcium [Crestor] 40 mg PO DAILY #30 tab 01/22/21 [Rx] Ticagrelor [Brilinta] 90 mg PO BID #60 tab 01/22/21 [Rx] Follow up Appointment(s)/Referral(s): [facility],Clinic [Primary Care Provider] - 1-2 days Activity/Diet/Wound Care/Special Instructions: FAX discharge medication list to [facility] so more can be ordered Contact for indigent funds at [place]
[2021-01-22] MEDS ORDERED: FAMOTIDINE 20 MG TAB PO SCH (09:00)
[2021-01-22 11:30] VITALS: RESP 18
[2021-01-22 11:40] VITALS: PULSE 80
[2021-01-22 12:00] LABS: Glucose,Whole Blood 134 mg/dL (75-99)
--- NOTE | 2021-01-22 13:47 | P.PN ---
Subjective Progress Note Date: 01/22/21 Patient was interviewed and examined sitting up in the chair. Patient is day 2 post cath with PCI to the circumflex. Patient reports that he is doing well today and feels good. 2-D echo was completed and his EF is 60-65%. GENERAL: Well-appearing, well-nourished and in no acute distress. NECK: Supple without JVD or thyromegaly. LUNGS: Breath sounds clear to auscultation bilaterally. Respiration equal and unlabored. No wheezes, rales or rhonchi. HEART: Regular rate and rhythm without murmurs, rubs or gallops. S1 and S2 heard. EXTREMITIES: Normal range of motion, no edema. No clubbing or cyanosis. Peripheral pulses intact and strong. VITALS: [Temp 98.1, pulse 78, respiratory rate 18, blood pressure 122/75, O2 sat 98% on room air] TELEMETRY: [Patient is in normal sinus rhythm with inverted T waves, and PVCs] LABS: [Sodium 139, potassium 3.8, B1 15, creatinine 1.7, glucose 193, triglycerides 628, cholesterol 134, HDL 17] IMPRESSION: [STEMI, status post cardiac catheterization with PCI to circumflex and revealing patient's stents to LAD and RCA Coronary artery disease with previous stenting to LAD and RCA History of ablation History of AICD implantation Hypertension Hyperlipidemia Hypertriglyceridemia Diabetes mellitus] PLAN: [Check hemoglobin A1c and LDL direct Continue current cardiac medications Patient should eat a low-cholesterol diet Should follow with PCP or procurement services manager as an outpatient for severe hypertriglyceridemia The patient has been seen and evaluated. Plan of care has been reviewed and agreed upon by Dr. Ybarra. ] Objective - Vital Signs Vital signs: Vital Signs Temp 98.1 F 01/22/21 07:49 Pulse 80 01/22/21 11:39 Resp 18 01/22/21 11:39 BP 122/75 01/22/21 07:49 Pulse Ox 98 01/22/21 07:49 Intake & Output 01/21/21 01/22/21 01/22/21 18:59 06:59 18:59 Intake Total 235 240 Output Total 400 Balance -165 240 Weight 109.5 kg 99.1 kg Intake: Oral 235 240 Output: Urine 400 Other: Voiding Method Toilet Toilet Toilet Urinal Urinal Urinal # Voids 0 1 - Labs CBC & Chem 7: 01/20/21 13:54 01/21/21 04:43 Labs: Abnormal Lab Results - Last 24 Hours (Table) 01/21/21 01/21/21 01/22/21 Range/Units 17:32 20:26 06:03 POC Glucose (mg/dL) 228 H 205 H 150 H (75-99) mg/dL 01/22/21 Range/Units 11:53 POC Glucose (mg/dL) 134 H (75-99) mg/dL
[2021-01-22 23:39] LABS: Hemoglobin A1C 7.8 % (4.0-6.0)
--- NOTE | 2021-01-25 09:02 | CDI ---
Documentation Clarification Form Date: 01/25/2021 09:01:13 AM From: Daphne Way CCS, CCDS Admit Date: 01/20/2021 02:13:00 PM Patient Name: Kd Nye Visit Number: [id number] Discharge Date: 01/22/2021 02:00:00 PM ATTENTION: The Clinical Documentation Specialists (CDI) and [facility] Coding Staff appreciate your assistance in clarifying documentation. Please respond to the clarification below the line at the bottom and electronically sign. The CDI & [facility] Coding staff will review the response and follow-up if needed. Please note: Queries are made part of the Legal Health Record. If you have any questions, please contact the author of this message via ITS. Dr. Deondre Ybarra: Atrial Fibrillation is documented is documented in the 01/20 Cardiology Consult and the 01/21 Cardiology Progress Note without further specificity. Additional clarification regarding the type of atrial fibrillation is requested. History/Risk Factors per the 01/21 ED Note Past Medical History: CAD status post previous Heart Catheterization and Stent. DM II, GERD, Hyperlipidemia, Sleep Apnea, Liver Cancer. Per the 01/20 H/P: History of CAD with previous stenting and AICD implantation. Clinical Indicators: Presented to the ED on 01/20 via EMS with Chest Pain, given Nitro & Aspirin with some relief of pain. Was SOB, Diaphoretic & had some nausea. ED Clinical Impression: STEMI 01/20 VS: T 97.8, P 94, R 18 (SOB), BP 170/97, PO 97 RA - 2Lnc, BMI: 35.6 01/20 LAB: Glucose 238, Calcium 10.5, Magnesium 1.3, Troponin <0.012, 29.400, 138.000. 01/20 CXR: Left lateral lower chest AICD generator with single leading extending along the midline. Mild cardiomegaly. No acute. 01/20 EKG: Normal sinus rhythm at 81 bpm [place] interval 166 QRS is 116 QT interval 412 QTC is 478, significant ST segment elevation in inferior leads II, III, and F aVF as well as ST segment depression in precordial leads V1 through V4, also has depression in 1 and aVL. Treatment: Nitro paste x2, IV Heparin x1, po Lipitor, 01/20 Heart Cath: Acutely occluded proximal left circumflex. Mild disease in the LAD & RCA with patent grafts. 01/20 PTCA w/Stent to Left Circumflex Please clarify the type of atrial fibrillation, if known: [ ] Chronic [ ] Permanent [ ] Paroxysmal [ ] Persistent [ ] Atrial Fibrillation ruled out [ ] Other, please specify [ ] Unable to determine (Template Last Revised: November 2020) MTDD
== END 2021-01-22 14:00 | disposition home or self-care (01) | DRG 247 ==
LOC: EC 13:39 → 2SICU 14:13 → 3SCARD 01-21 16:35
PROVIDERS: ADMIT Internal Medicine; ATTEND Internal Medicine
PROC: B2111ZZ Fluoroscopy of Multiple Coronary Arteries using Low Osmolar Contrast (ICD-10-PCS; 2021-01-20)
PROC: B2131ZZ Fluoroscopy of Multiple Coronary Artery Bypass Grafts using Low Osmolar Contrast (ICD-10-PCS; 2021-01-20)
PROC: 027034Z Dilation of Coronary Artery, One Artery with Drug-eluting Intraluminal Device, Percutaneous Approach (ICD-10-PCS; principal; 2021-01-20 12:05)
PROC: 4A023N7 Measurement of Cardiac Sampling and Pressure, Left Heart, Percutaneous Approach (ICD-10-PCS; 2021-01-20 12:05)
DX: I21.3 ST elevation (STEMI) myocardial infarction of unspecified site (principal); N17.9 Acute kidney failure, unspecified; I25.10 Atherosclerotic heart disease of native coronary artery without angina pectoris; I25.2 Old myocardial infarction; I48.91 Unspecified atrial fibrillation; Z20.822 Contact with and (suspected) exposure to COVID-19; Z79.82 Long term (current) use of aspirin; Z79.84 Long term (current) use of oral hypoglycemic drugs; Z79.899 Other long term (current) drug therapy; Z85.05 Personal history of malignant neoplasm of liver; Z87.891 Personal history of nicotine dependence; Z95.810 Presence of automatic (implantable) cardiac defibrillator; I25.82 Chronic total occlusion of coronary artery; I49.3 Ventricular premature depolarization; K21.9 Gastro-esophageal reflux disease without esophagitis; E11.9 Type 2 diabetes mellitus without complications; E03.9 Hypothyroidism, unspecified; E78.5 Hyperlipidemia, unspecified; F32.9 Major depressive disorder, single episode, unspecified; E78.1 Pure hyperglyceridemia; N28.9 Disorder of kidney and ureter, unspecified; I12.9 Hypertensive chronic kidney disease with stage 1 through stage 4 chronic kidney disease, or unspecified chronic kidney disease; E11.22 Type 2 diabetes mellitus with diabetic chronic kidney disease; N18.9 Chronic kidney disease, unspecified
CPT/HCPCS: 36415; 71045; 80048; 80053; 80061; 83036; 83721; 83735; 84484; 85025; 85610; 85730; 93005; 93306; 93458; 94640; 94760; 96374; 99291